=== PATIENT | female | born 1930 | race African-American/Black ===

== ENCOUNTER 2017-06-28 15:19 | Inpatient (IN) | payer MEDICARE ==
[2017-06-28 17:37] VITALS: BMI 24.5
--- NOTE | 2017-06-28 19:06 | RAD ---
CHEST ONE VIEW: History: Dyspnea. Comparison: 06-22-17 FINDINGS: Cardiac silhouette is magnified by projection. Pulmonary vasculature is upper limits of normal. Patch y bilateral perihilar and bibasilar infiltrates are now apparent. Mediastinum is midline with aortic calcification and a dual-lead left subclavian cardiac electronic device. quality assurance monitor body leads overli e the chest. IMPRESSION: 1. Mild pulmonary vascular congestion. 2. Atherosclerosis. POS: [facility]
[2017-06-28 19:24] LABS: #Basophils 0.1 thou/uL (0.0-0.2); #Eosinphils 0.1 thou/uL (0.0-0.7); #Lymphocytes 1.2 thou/uL (1.20-3.40); #Monocytes 0.9 thou/uL (0.11-0.59); #Neutrophils 4.4 thou/uL (1.40-6.50); %Basophils 0.9 % (0.0-1.0); %Lymphocytes 17.9 % (21.0-51.0); %Monocytes 12.7 % (0.0-10.0); %Neutrophils 66.5 % (42.0-75.0); Hemoglobin 13.1 g/dL (12.0-16.0); Mean Corpuscular HGB CONC 31.3 g/dL (32.0-36.0); Mean Corpuscular Hemoglobin 30.6 pg (27.0-31.0); Mean Corpuscular Volume 97.8 fl (81.0-99.0); Mean Platelet Volume 7.3 fL (7.4-10.4); Platelet Count 214 thou/uL (130-400); RBC Distribution Width 12.5 % (11.5-14.5); Red Blood Cell (RBC) Count 4.29 mill/uL (4.20-5.40); White Blood Cell (WBC) Count 6.7 thou/uL (4.8-10.8)
[2017-06-28 19:44] LABS: ALT (SGPT) 27 U/L (8-55); AST (SGOT) 41 U/L (5-34); Albumin 3.1 g/dL (3.4-4.8); Alkaline Phosphatase 111 U/L (40-150); Anion Gap 10 mmol/L (10-20); BUN (Urea Nitrogen) 15 mg/dL (9.8-20.1); Bilirubin, Total 0.3 mg/dL (0.2-1.2); Calc. Creatinine Clearance 18 mL/min (70-130); Calcium 9.6 mg/dL (7.8-10.44); Carbon Dioxide 28 mmol/L (23-31); Chloride 102 mmol/L (98-107); Estimated GFR-MDRD 26; Globulin 3.1 g/dL (2.4-3.5); Glucose 110 mg/dL (83-110); Magnesium 2.2 mg/dL (1.6-2.6); Potassium 3.3 mmol/L (3.5-5.1); Protein, Total 6.2 g/dL (6.0-8.3); Sodium 137 mmol/L (136-145)
[2017-06-28 19:50] LABS: Troponin I 0.023 ng/mL (< 0.028)
--- NOTE | 2017-06-28 19:58 | PDOC.PN ---
- Subjective Encounter Start Date: 06/28/17 Encounter Start Time: 19:58 Patient seen and examined. - Objective MAR Reviewed: Yes Vital Signs & Weight: Vital Signs (12 hours) Temp Pulse Resp BP Pulse Ox 06/28/17 19:42 98.0 F 109 H 20 161/81 H 95 06/28/17 17:10 98.0 F 93 18 95 06/28/17 17:05 98.0 F 93 18 114/73 Weight Weight 134 lb 1 oz I&O: 06/27/17 06/28/17 06/29/17 06:59 06:59 06:59 Output Total 550 Balance -550 Result Diagrams: 06/28/17 19:13 06/28/17 19:13 Radiology Reviewed by me: Yes (CXR - mild pulm vas congestio) EKG Reviewed by me: Yes (Tele paced) Phys Exam - Physical Examination Constitutional: NAD HEENT: PERRLA, moist MMs Neck: no nodes, no JVD Respiratory: no wheezing, no rhonchi, clear to auscultation bilateral Scat rales at bases Cardiovascular: RRR, no rub no heaves/pulsations Gastrointestinal: soft, non-tender, no distention, positive bowel sounds Musculoskeletal: no edema, pulses present Neurological: non-focal, normal sensation, moves all 4 limbs Psychiatric: normal affect, A&O x 3 Skin: no rash Review of Systems - Review of Systems Constitutional: negative: fever, chills, sweats, weakness, malaise, other Eyes: negative: Pain, Vision Change, Conjunctivae Inflammation, Eyelid Inflammation, Redness, Other ENT: negative: Ear Pain, Ear Discharge, Nose Pain, Nose Discharge, Nose Congestion, Mouth Pain, Mouth Swelling, Throat Pain, Throat Swelling, Other Respiratory: negative: Cough, Dry, Shortness of Breath, Hemoptysis, SOB with Excertion, Pleuritic Pain, Sputum, Wheezing Cardiovascular: negative: chest pain, palpitations, orthopnea, paroxysmal nocturnal dyspnea, edema, light headedness, other Gastrointestinal: negative: Nausea, Vomiting, Abdominal Pain, Diarrhea, Constipation, Melena, Hematochezia, Other Genitourinary: negative: Dysuria, Frequency, Incontinence, Hematuria, Retention , Other Musculoskeletal: negative: Neck Pain, Shoulder Pain, Arm Pain, Back Pain, Hand Pain, Leg Pain, Foot Pain, Other Skin: negative: Rash, Lesions, Rm, Bruising, Other Neurological: negative: Weakness, Numbness, Incoordination, Change in Speech, Confusion, Seizures, Other - Medications/Allergies Allergies/Adverse Reactions: Allergies Allergy/AdvReac Type Severity Reaction Status Date / Time No Known Allergies Allergy Verified 06/28/17 17:26 Medications: Current Medications Albuterol/Ipratropium (Duoneb) 3 ml NEB [id number] PRN PRN Reason: SOB &/or Wheezing
[2017-06-28] MEDS ORDERED: Bisacodyl 10 MG SUPP PR PRN (20:01)
[2017-06-28] MEDS ORDERED: Acetaminophen 325 MG TAB PO PRN (20:01)
[2017-06-28] MEDS ORDERED: Ondansetron ODT 4 MG TAB PO PRN (20:01)
[2017-06-28] MEDS ORDERED: Nitroglycerin 0.4 MG TAB (25 Tab Bottle) PO PRN (20:01)
[2017-06-28] MEDS ORDERED: Ondansetron HCl/PF 4 MG/2 ML Vial IVP PRN (20:01)
[2017-06-28] MEDS ORDERED: Senokot 8.6 MG TAB PO PRN (20:01)
[2017-06-28] MEDS ORDERED: Calcium Carbonate 500 MG ChewTAB PO PRN (20:01)
[2017-06-28] MEDS: Rosuvastatin 20 MG TAB PO SCH (21:17)
[2017-06-28] MEDS: Heparin 5,000 UNITS/ML VIAL SC SCH (21:18)
[2017-06-28] MEDS: Docusate 100 MG CAP PO SCH (21:18)
[2017-06-28] MEDS: Sodium Chloride 0.9% 1,000 ML IV SCH (21:20)
--- NOTE | 2017-06-28 22:11 | HP ---
DATE OF ADMISSION: 06/28/2017 PRIMARY CARE PHYSICIAN: Vanessa Romo D.O. CHIEF COMPLAINT: Abnormal labs. CODE STATUS: FULL CODE. SURROGATE DECISION MAKER: Patient makes her own physician with the help of her family. HISTORY OF PRESENT ILLNESS: Patient is an 87-year-old female with a recent influenzae A COPD, chroni c diastolic heart failure, hypertension, and hyperlipidemia who presented as a direct admit from [facility] with abnormal labs. She was found to have elevated creatinine as well as blood pressure of 88/ 59 this morning at the nursing facility. She also felt generally weak. Her potassium this morning w as 2.7. The patient had recent influenza and has completed Tamiflu. Due to recent worsening creatin ine, NICKO inhibitor, Aldactone and Lasix were held. She denies any chest pain, palpitations, lighthea dedness, or dizziness. She was admitted last month and was evaluated by Cardiology. Echocardiogram last month showed left ventricular ejection fraction of 50%-55% with diastolic dysfunction, mild to m oderate concentric left ventricular hypertrophy. She also has a history of mild coronary artery dise ase. PAST MEDICAL HISTORY: 1. Mild coronary artery disease. 2. Nonischemic cardiomyopathy. 3. Hypertension. 4. Chronic obstructive pulmonary disease. 5. Hyperlipidemia. 6. Recent influenza. 7. History of thyroid mass. 8. Carotid stenosis. 9. Former smoker. 10. Chronic respiratory failure, on home oxygen. PAST SURGICAL HISTORY: 1. AICD placement. 2. Hernia repair. 3. Cardiac catheterization. ALLERGIES: Patient is allergic to TESSALON PERLES. CURRENT HOME MEDICATIONS: Albuterol nebulizer as needed, aspirin 325 mg daily, Pulmicort nebulizer b .i.d., Perforomist 20 mcg b.i.d., loratadine 10 mg daily, multivitamin daily, Ranexa 500 mg b.i.d., C restor 40 mg at bedtime, Lasix, lisinopril, and Aldactone are currently on hold. SOCIAL HISTORY: Patient is a former smoker. Currently, he resides at the [facility] bed. No current use of smoking, alcohol, or drug use. FAMILY HISTORY: Negative for premature coronary artery disease. Father from dementia. REVIEW OF SYSTEMS: Please refer to my progress note. PHYSICAL EXAMINATION: VITAL SIGNS: Per today's progress note. GENERAL: An 87-year-old female in no apparent distress. Feels generally weak. HEENT: Head: Atraumatic, normocephalic. Sclerae are anicteric. Moist mucous membranes. No oral l esion. NECK: Supple, no JVD, no carotid bruit. LUNGS: Showed scattered rales at bases. No wheezing or rhonchi. Lungs were symmetrical. No signif icant use of accessory muscles. HEART: S1, S2 present, 2/6 systolic murmur over the mitral area. No heaves or pulsation. ABDOMEN: Soft, nontender, bowel sounds present. EXTREMITIES: No edema or calf tenderness. NEUROLOGIC: Grossly nonfocal, moves all four extremities. PSYCHIATRY: Alert, awake, oriented x3. SKIN: Warm and dry. LYMPH NODES: No palpable lymph nodes in the neck. PERIPHERAL VASCULAR: Radial pulses palpable bilaterally. MUSCULOSKELETAL: No joint swelling or tenderness. SKIN: Warm and dry. LYMPH NODES: No palpable lymph nodes in the neck. LABORATORY FINDINGS AND RADIOLOGY FINDINGS: Per my progress note. IMPRESSION: 1. Acute kidney injury, multifactorial. 2. Chronic diastolic heart failure, compensated. 3. Hypokalemia. The patient received 40 mEq of potassium chloride at the nursing facility. 4. Hyperlipidemia. 5. Mild coronary artery disease. 6. Chronic obstructive pulmonary disease. 7. Chronic respiratory failure, on home oxygen. 8. Recent influenza. 9. Hyperlipidemia. 10. History of thyroid mass. PLAN: The patient will be monitored in the telemetry unit. We will get renal ultrasound. Gentle in travenous hydration. Hold Lasix, Aldactone, and lisinopril. Check urinalysis. Avoid nephrotoxic ag ents. Continue other home medications. P.r.n. nebulizer treatment. DVT prophylaxis with heparin. We will consult Nephrology in a.m. Adjust medications based on renal function. Plan of care was discussed with the patient in detail. She stated understanding.
[2017-06-28 23:47] LABS: Bilirubin Negative (Negative); Blood, Urine Small (Negative); Clarity CLEAR (Clear); Glucose, Urine (Dipstick) Negative (Negative); Leukocyte Negative (Negative); Nitrite Negative (Negative); Protein, Urine (Dipstick) 300 mg/dL (Neg-Trace); Specific Gravity, Urine 1.014 (1.002-1.036); Urobilinogen 0.2 mg/dL (0.2-1.0)
[2017-06-28 23:53] LABS: Bacteria/HPF None Seen HPF (None Seen); Hyaline Casts/LPF 7-10 HYALINE CAST LPF (0-3 Hyaline); Pathc Cast-AUWi Flag 1.89 (0-2.49); Squamous Epithelial 0-3 HPF (0-3)
[2017-06-29] MEDS: Arformoterol 15 MCG/2 ML NEB NEB SCH ×2 (07:04→18:44)
[2017-06-29] MEDS: Budesonide 0.25 MG/2 ML NEB NEB SCH ×2 (07:08→18:49)
[2017-06-29] MEDS ORDERED: Potassium Chloride 20 MEQ TAB PO SCH ×2 (08:00→09:00)
--- NOTE | 2017-06-29 09:10 | ULT ---
BILATERAL RENAL ULTRASOUND: HISTORY: Acute renal insufficiency. FINDINGS: The right kidney measures 10.1 cm in length and the left kidney measures 9.8 cm in length. No hydron ephrosis is seen on either side. There is a 1.3 cm cyst in the right mid kidney and a 1 cm cyst in t he left mid kidney. The urinary bladder is well distended with a volume of 187 cc. There is suggest ion of a 5 mm calculus in the inferior pole of the right kidney. IMPRESSION: 1. Bilateral renal cysts. 2. Probable nonobstructing 5 mm right renal calculus. POS: OFF
--- NOTE | 2017-06-29 09:28 | CON ---
DATE OF CONSULTATION: 06/29/2017 CONSULTING PHYSICIAN: Ene Loera M.D. REQUESTING PHYSICIAN: Dr. Velazquez REASON FOR CONSULTATION: Acute on chronic kidney disease and hypokalemia. IMPRESSION: 1. Acute on chronic kidney disease. This is likely in the context of hemodynamically and cytokine-m ediated injury as patient recently suffered influenza with urinary tract infection and also noted to be hemodynamically unstable with systolic blood pressure in the 80s. 2. Hypokalemia. PLAN: 1. Gentle IV fluid rehydration. 2. Replete potassium. 3. Renally dose all medications and avoid potentially nephrotoxic agents. 4. Further management will be dependent on the clinical course. I do expect significant improvement in the renal function once hemodynamics have stabilized. Meanwhile for now we will hold the angiote nsin converting enzyme inhibitors, diuretics until such point that hemodynamics stabilizes. HISTORY OF PRESENT ILLNESS: History is that of an 87-year-old female patient who has been at an [facility] facility where she was being treated for urinary tract infection and influenza. The patient note d to be hemodynamically stable with a systolic blood pressure in the 80s and clinical evaluation did reveal elevated creatinine above the patient's baseline creatinine as well as severe hypokalemia. As a result of this, the decision was taken to transfer this patient to us here. Of note, according to records, the patient does have an ejection fraction of about 50-55%. Review of the patient's medica tions revealed an angiotensin converting enzyme inhibitor, diuretics including loop diuretic and spir onolactone. All these medications have been placed on hold at this point. As a result of the conste llation of these findings, the decision has been taken to involve Renal in the management of this orin e. The patient does alude to the history of dizziness, some weakness, but no nausea, no vomiting, no diarrhea. According to the family, the patient probably has not been eating much. Given the nature of the food being stopped over there. PAST MEDICAL HISTORY: Coronary artery disease, nonischemic, cardiomyopathy, hypertension, chronic ob structive pulmonary disease, dyslipidemia, history of thyroid mass, carotid stenosis. Remote tobacco usage. MEDICATIONS: Reviewed and as documented on Dip[facility]. ALLERGIES: TESSALON PERLES. SOCIAL HISTORY: Remote tobacco use. No alcohol, no tobacco, no illicit drug use at this point. FAMILY HISTORY: None significantly related to the presenting illness. REVIEW OF SYSTEMS: As documented in the body of the history. All the other systems were reviewed an d were found not to be significantly related to the presenting illness. PHYSICAL EXAMINATION: GENERAL: The patient was found not to be in any obvious respiratory or physical distress, now hemody namically much more stable. Afebrile. HEENT: Remarkable for some degree of dry oral mucosa, otherwise neck was supple. No conjunctival in jection or icterus. CARDIOVASCULAR SYSTEM: First and second heart sounds. RESPIRATORY SYSTEM: Clear to auscultation bilaterally. DIGESTIVE SYSTEM: Revealed a benign abdomen with positive bowel sounds. EXTREMITIES: No peripheral edema. SKIN: No new gross rash. LYMPHATICS: No peripheral lymphadenopathy. SUMMARY: An 87-year-old female patient who presented here with elevated creatinine above her baselin e creatinine as well as severe hypokalemia. Thank you for this consultation. We will follow with you.
[2017-06-29] MEDS: Heparin 5,000 UNITS/ML VIAL SC SCH ×2 (10:10→20:24)
[2017-06-29] MEDS: Multivit, Therapeutic 1 TAB PO SCH (10:10)
[2017-06-29] MEDS: Docusate 100 MG CAP PO SCH ×2 (10:10→20:23)
[2017-06-29] MEDS: Aspirin 325 MG TAB PO SCH (10:11)
[2017-06-29] MEDS: Loratadine 10 MG TAB PO SCH (10:20)
--- NOTE | 2017-06-29 10:20 | PDOC.PN ---
- Subjective Encounter Start Date: 06/29/17 Encounter Start Time: 10:18 Patient seen and examined. No new complaints. No overnight events - Objective Resuscitation Status: Resuscitation Status FULL:Full Resuscitation MAR Reviewed: Yes Vital Signs & Weight: Vital Signs (12 hours) Temp Pulse Resp BP Pulse Ox 06/29/17 07:08 96 16 98 06/29/17 07:04 96 16 98 06/29/17 04:00 97.4 F L 100 20 107/67 97 06/29/17 01:57 101 H 18 96 06/29/17 00:00 98.6 F 93 18 114/66 98 Weight Weight 133 lb I&O: 06/28/17 06/29/17 06/30/17 06:59 06:59 06:59 Intake Total 950 Output Total 1400 Balance -450 Result Diagrams: 06/28/17 19:13 06/28/17 19:13 Radiology Reviewed by me: No (Renal USG - No obstruction) EKG Reviewed by me: Yes (Tele SR) Phys Exam - Physical Examination Constitutional: NAD Respiratory: no wheezing, no rales, no rhonchi, clear to auscultation bilateral Cardiovascular: RRR, no rub no heaves/pulsation Gastrointestinal: soft, non-tender, no distention, positive bowel sounds Musculoskeletal: no edema Neurological: non-focal, moves all 4 limbs Psychiatric: A&O x 3 Dx/Plan - Plan DVT proph w/heparin, DVT proph w/SCDs IMPRESSION: 1. Acute kidney injury, multifactorial. 2. Chronic diastolic heart failure, compensated. 3. Hypokalemia. 4. Hyperlipidemia. 5. Mild coronary artery disease. 6. Chronic obstructive pulmonary disease. 7. Chronic respiratory failure, on home oxygen. 8. Recent influenza. 9. Hyperlipidemia. 10. History of thyroid mass. 11. Renal calculi PLAN: * Change IVF to 50 ml/hr * Nephro following * Diuretics/ACEI/Aldactone on hold * AM lab * Repeat labs at 1300 * Orthostatics in AM * Cont current meds as below * PT/OT Review of Systems - Review of Systems Respiratory: negative: Cough, Dry, Shortness of Breath, Hemoptysis, SOB with Excertion, Pleuritic Pain, Sputum, Wheezing Cardiovascular: negative: chest pain, palpitations, orthopnea, paroxysmal nocturnal dyspnea, edema, light headedness - Medications/Allergies Allergies/Adverse Reactions: Allergies Allergy/AdvReac Type Severity Reaction Status Date / Time No Known Allergies Allergy Verified 06/28/17 17:26 Medications: Current Medications Acetaminophen (Tylenol) 650 mg PO Q4H PRN PRN Reason: Headache/Fever or Pain Albuterol/Ipratropium (Duoneb) 3 ml NEB [id number] PRN PRN Reason: SOB &/or Wheezing Last Admin: 06/29/17 07:08 Dose: 3 ml Arformoterol Tartrate (Brovana) 15 mcg NEB BID-RT [facility] Last Admin: 06/29/17 07:04 Dose: 15 mcg Aspirin (Aspirin) 325 mg PO DAILY [facility] Bisacodyl (Dulcolax) 10 mg [place] Q24H PRN PRN Reason: Constipation Budesonide (Pulmicort Neb Solution) 0.25 mg NEB BID-RT [facility] Last Admin: 06/29/17 07:08 Dose: 0.25 mg Calcium Carbonate (Tums) 1,000 mg PO Q4H PRN PRN Reason: Heartburn or Indigestion Docusate Sodium (Colace) 100 mg PO BID [facility] Last Admin: 06/28/17 21:18 Dose: 100 mg Heparin Sodium (Porcine) (Heparin) 5,000 units SC BID [facility] Last Admin: 06/28/17 21:18 Dose: 5,000 units Sodium Chloride (Normal Saline 0.9%) 1,000 mls @ 50 mls/hr IV .Q20H [facility] Loratadine (Claritin) 10 mg PO DAILY [facility] Multivitamins (Theragran) 1 tab PO DAILY [facility] Nitroglycerin (Nitrostat) 0.4 mg PO Q5MIN PRN PRN Reason: Chest Pain Ondansetron HCl (Zofran Odt) 4 mg PO Q6H PRN PRN Reason: Nausea/Vomiting Ondansetron HCl (Zofran) 4 mg IVP Q6H PRN PRN Reason: Nausea/Vomiting Ranolazine (Ranexa) 500 mg PO 0800,1800 [facility] Rosuvastatin Calcium (Crestor) 40 mg PO HS [facility] Last Admin: 06/28/17 21:17 Dose: 40 mg Senna (Senokot) 2 tab PO HSPRN PRN PRN Reason: Constipation Sodium Chloride (Flush - Normal Saline) 10 ml IVF Q12HR [facility] Last Admin: 06/28/17 22:50 Dose: Not Given Sodium Chloride (Flush - Normal Saline) 10 ml IVF PRN PRN PRN Reason: Saline Flush
[2017-06-29] MEDS: Sodium Chloride 0.9% 1,000 ML IV SCH ×2 (10:34→12:38)
[2017-06-29 13:31] LABS: Anion Gap 11 mmol/L (10-20); BUN (Urea Nitrogen) 13 mg/dL (9.8-20.1); Calc. Creatinine Clearance 21 mL/min (70-130); Calcium 8.9 mg/dL (7.8-10.44); Carbon Dioxide 23 mmol/L (23-31); Chloride 106 mmol/L (98-107); Estimated GFR-MDRD 32; Glucose 112 mg/dL (83-110); Potassium 3.6 mmol/L (3.5-5.1); Sodium 136 mmol/L (136-145)
[2017-06-29] MEDS: Rosuvastatin 20 MG TAB PO SCH (20:23)
[2017-06-30 05:37] LABS: Anion Gap 7 mmol/L (10-20); BUN (Urea Nitrogen) 13 mg/dL (9.8-20.1); Calc. Creatinine Clearance 26 mL/min (70-130); Calcium 8.6 mg/dL (7.8-10.44); Carbon Dioxide 29 mmol/L (23-31); Chloride 106 mmol/L (98-107); Estimated GFR-MDRD 39; Glucose 93 mg/dL (83-110); Sodium 139 mmol/L (136-145)
[2017-06-30] MEDS: Sodium Chloride 0.9% 1,000 ML IV SCH (05:52)
[2017-06-30] MEDS: Arformoterol 15 MCG/2 ML NEB NEB SCH ×2 (08:09→18:52)
[2017-06-30] MEDS: Budesonide 0.25 MG/2 ML NEB NEB SCH ×2 (08:11→18:52)
[2017-06-30] MEDS: Heparin 5,000 UNITS/ML VIAL SC SCH ×2 (09:28→20:31)
[2017-06-30] MEDS: Loratadine 10 MG TAB PO SCH (09:29)
[2017-06-30] MEDS: Multivit, Therapeutic 1 TAB PO SCH (09:29)
[2017-06-30] MEDS: Docusate 100 MG CAP PO SCH ×2 (09:29→20:32)
[2017-06-30] MEDS: Aspirin 325 MG TAB PO SCH (09:29)
--- NOTE | 2017-06-30 18:56 | PRG ---
DATE OF SERVICE: 06/30/2017 SUBJECTIVE: Patient was seen and examined, seems to be doing so much better noted with the following vital signs. OBJECTIVE: VITAL SIGNS: Afebrile with temperature 98.6, pulse 97, respiratory rate 18, O2 sat 96% with blood pr essure 146/88, O2 sat 100%. HEENT: Unremarkable with moist oral mucosa. NECK: Supple, no conjunctival injection or icterus. CARDIOVASCULAR SYSTEM: First and second heart sounds were heard. RESPIRATORY SYSTEM: Clear to auscultation. DIGESTIVE SYSTEM: Revealed a benign abdomen with positive bowel sounds. EXTREMITIES: No peripheral edema. SKIN: No new gross rash. LYMPHATICS: No peripheral lymphadenopathy. LABORATORY INVESTIGATION: Showed a potassium of 3.0, creatinine down to 1.54. IMPRESSION: 1. Acute on chronic kidney disease, which seems to be improving. 2. Hypokalemia. PLAN: 1. Replete the potassium. 2. Discontinue IV fluid. 3. From the renal standpoint, patient is good for discharge. Please, for now, hold the patient's AC E inhibitor and diuretics. We will plan on having patient follow up with Nephrology in 2 weeks and w ith a repeat chemistry. 4. Further management to be dependent on the clinical course.
[2017-06-30] MEDS: Rosuvastatin 20 MG TAB PO SCH (20:39)
--- NOTE | 2017-06-30 22:13 | PDOC.PN ---
- Subjective Encounter Start Date: 06/30/17 Encounter Start Time: 17:00 Patient seen and examined. No new complaints. No overnight events - Objective Resuscitation Status: Resuscitation Status FULL:Full Resuscitation MAR Reviewed: Yes Vital Signs & Weight: Vital Signs (12 hours) Temp Pulse Pulse Pulse Resp BP BP 06/30/17 20:00 98.0 F 94 18 06/30/17 18:52 101 H 20 06/30/17 16:00 98.4 F 80 18 06/30/17 12:00 98.6 F 97 18 06/30/17 11:02 108 H 97 146/88 H 135/73 BP Pulse Ox Pulse Ox Pulse Ox 06/30/17 20:00 129/71 96 06/30/17 18:52 98 06/30/17 16:00 140/78 96 06/30/17 12:00 135/73 96 06/30/17 11:02 100 100 Weight Weight 137 lb 1.6 oz I&O: 06/29/17 06/30/17 07/01/17 06:59 06:59 06:59 Intake Total 950 2735 1580 Output Total 1400 1575 1450 Balance -450 1160 130 Result Diagrams: 06/28/17 19:13 06/30/17 05:06 EKG Reviewed by me: Yes (Tele SR) Phys Exam - Physical Examination Constitutional: NAD Respiratory: no wheezing, no rhonchi Cardiovascular: RRR, no rub Gastrointestinal: soft, non-tender, positive bowel sounds Musculoskeletal: no edema Neurological: moves all 4 limbs Dx/Plan - Plan plan discussed w/ family, DVT proph w/heparin, DVT proph w/SCDs IMPRESSION: 1. Acute kidney injury, improving 2. Chronic diastolic heart failure, compensated. 3. Hypokalemia. 4. Hyperlipidemia. 5. Mild coronary artery disease. 6. Chronic obstructive pulmonary disease. 7. Chronic respiratory failure, on home oxygen. 8. Recent influenza A and B with UTI 9. Hyperlipidemia. 10. History of thyroid mass. 11. Renal calculi PLAN: * DC IVF * Replace Potassium * Nephro following * Diuretics/ACEI/Aldactone on hold * AM lab * Cont current meds as below * PT/OT * DC to SNF in AM if stable Review of Systems - Review of Systems Respiratory: negative: Cough, Dry, Shortness of Breath, Hemoptysis, SOB with Excertion, Pleuritic Pain, Sputum, Wheezing Cardiovascular: negative: chest pain, palpitations, orthopnea, paroxysmal nocturnal dyspnea, edema, light headedness - Medications/Allergies Allergies/Adverse Reactions: Allergies Allergy/AdvReac Type Severity Reaction Status Date / Time No Known Allergies Allergy Verified 06/28/17 17:26 Medications: Current Medications Acetaminophen (Tylenol) 650 mg PO Q4H PRN PRN Reason: Headache/Fever or Pain Albuterol/Ipratropium (Duoneb) 3 ml NEB [id number] PRN PRN Reason: SOB &/or Wheezing Last Admin: 06/30/17 02:37 Dose: 3 ml Arformoterol Tartrate (Brovana) 15 mcg NEB BID-RT [facility] Last Admin: 06/30/17 18:52 Dose: 15 mcg Aspirin (Aspirin) 325 mg PO DAILY [facility] Last Admin: 06/30/17 09:29 Dose: 325 mg Bisacodyl (Dulcolax) 10 mg [place] Q24H PRN PRN Reason: Constipation Budesonide (Pulmicort Neb Solution) 0.25 mg NEB BID-RT [facility] Last Admin: 06/30/17 18:52 Dose: 0.25 mg Calcium Carbonate (Tums) 1,000 mg PO Q4H PRN PRN Reason: Heartburn or Indigestion Docusate Sodium (Colace) 100 mg PO BID [facility] Last Admin: 06/30/17 20:32 Dose: 100 mg Loratadine (Claritin) 10 mg PO DAILY [facility] Last Admin: 06/30/17 09:29 Dose: 10 mg Multivitamins (Theragran) 1 tab PO DAILY [facility] Last Admin: 06/30/17 09:29 Dose: 1 tab Nitroglycerin (Nitrostat) 0.4 mg PO Q5MIN PRN PRN Reason: Chest Pain Ondansetron HCl (Zofran Odt) 4 mg PO Q6H PRN PRN Reason: Nausea/Vomiting Ondansetron HCl (Zofran) 4 mg IVP Q6H PRN PRN Reason: Nausea/Vomiting Ranolazine (Ranexa) 500 mg PO 0800,1800 [facility] Last Admin: 06/30/17 16:54 Dose: 500 mg Rosuvastatin Calcium (Crestor) 40 mg PO HS [facility] Last Admin: 06/30/17 20:39 Dose: 40 mg Senna (Senokot) 2 tab PO HSPRN PRN PRN Reason: Constipation Sodium Chloride (Flush - Normal Saline) 10 ml IVF Q12HR [facility] Last Admin: 06/30/17 20:41 Dose: 10 ml Sodium Chloride (Flush - Normal Saline) 10 ml IVF PRN PRN PRN Reason: Saline Flush
[2017-07-01 06:14] LABS: Anion Gap 8 mmol/L (10-20); BUN (Urea Nitrogen) 11 mg/dL (9.8-20.1); Calc. Creatinine Clearance 28 mL/min (70-130); Calcium 8.6 mg/dL (7.8-10.44); Carbon Dioxide 32 mmol/L (23-31); Chloride 104 mmol/L (98-107); Estimated GFR-MDRD 44; Glucose 86 mg/dL (83-110); Sodium 141 mmol/L (136-145)
[2017-07-01 06:34] LABS: Potassium 2.9 mmol/L (3.5-5.1)
[2017-07-01] MEDS: Budesonide 0.25 MG/2 ML NEB NEB SCH (06:54)
[2017-07-01] MEDS: Arformoterol 15 MCG/2 ML NEB NEB SCH (06:57)
[2017-07-01] MEDS ORDERED: Potassium Chloride 20 MEQ TAB PO SCH ×2 (07:00→08:00)
[2017-07-01 08:01] VITALS: TEMP 98.6
[2017-07-01] MEDS: Loratadine 10 MG TAB PO SCH (09:42)
[2017-07-01] MEDS: Docusate 100 MG CAP PO SCH (09:42)
[2017-07-01] MEDS: Multivit, Therapeutic 1 TAB PO SCH (09:42)
[2017-07-01] MEDS: Aspirin 325 MG TAB PO SCH (09:42)
--- NOTE | 2017-07-01 13:39 | DIS ---
DISCHARGE DISPOSITION: group home facility. ALLERGIES: No known drug allergies. The patient was seen and examined on the day of discharge. Denies any new complaints. No chest pain, shortness of breath, or palpitations. DISCHARGE MEDICATIONS: Albuterol nebulizer as needed, aspirin 325 mg daily, Pulmicort 0.25 mg b.i.d., Colace 100 mg b.i.d. Perforomist 20 mcg b.i.d., Lasix 20 mg daily as needed for edema, loratadine 10 mg daily, multivitamin 1 tablet daily, potassium chloride 40 mEq twice a day for next 2 days. Primary care physician advised to follow up on potassium levels. Ranexa 500 mg b.i.d. Crestor 40 mg at bedtime. INPATIENT CONSULTANTS: Nephrology, Dr. Luque. DIAGNOSTIC TESTS: Renal ultrasound on 06/29/2017 showed bilateral renal cysts with probable nonobstructing 5 mm right renal calculus. BRIEF HOSPITAL COURSE: The patient is an 87-year-old female with recent Influenza A and B, COPD, chronic diastolic heart failure, hypertension, and hyperlipidemia, who presented as a direct admit from [facility] with abnormal labs. She also was found to have low blood pressure in systolic 80s. Please refer to the history and physical dated 06/28/2017 for further details. The patient was admitted to the hospital with a diagnosis of acute kidney injury with hypokalemia. Lasix, Aldactone, and lisinopril were held. The patient was seen by Nephrology, Dr. Luque. She received gentle IV hydration. Yesterday, IV fluids were discontinued. Creatinine today is 1.38 from 2.19 on admission. Potassium today was 2.9. The patient received total of 40 mEq of potassium chloride today. She will receive 40 mEq twice a day for the next 2 days. Primary care physician advised to follow up on the potassium levels. She will benefit from daily basic metabolic until the potassium level normalizes. She will follow up with Dr. Luque next week. Dr. Luque advised the patient to hold NICKO inhibitor and Aldactone for now. NICKO inhibitor can probably be started after 1 week once renal function has normalized. Low dose Amlodipine can be considered if needed. Plan of care was discussed with the patient in detail. She stated understanding. The patient is being discharged to nursing home facility to resume rehabilitation. FINAL DIAGNOSES: 1. Acute kidney injury, improving. 2. Chronic diastolic heart failure. 3. Hypokalemia. We will continue potassium supplementation with daily labs. 4. Hyperlipidemia. 5. Mild coronary artery disease. 6. Chronic obstructive pulmonary disease. 7. Chronic respiratory failure, on home oxygen. 8. Recent influenza A and B. 9. Hyperlipidemia. 10. History of thyroid mass. 11. Probable renal calculi based on renal ultrasound. MTDD
[2017-07-01 15:33] LABS: Potassium 3.5 mmol/L (3.5-5.1)
[2017-07-01 20:33] VITALS: BP 133/92
== END 2017-07-01 16:00 | disposition swing bed (61) | DRG 683 ==
LOC: 2NO 17:05
PROVIDERS: ADMIT Internal Medicine; ATTEND Internal Medicine
DX: N17.9 Acute kidney failure, unspecified (principal); I50.32 Chronic diastolic (congestive) heart failure; J96.10 Chronic respiratory failure, unspecified whether with hypoxia or hypercapnia; I42.9 Cardiomyopathy, unspecified; I13.0 Hypertensive heart and chronic kidney disease with heart failure and stage 1 through stage 4 chronic kidney disease, or unspecified chronic kidney disease; Z99.81 Dependence on supplemental oxygen; J44.9 Chronic obstructive pulmonary disease, unspecified; E87.6 Hypokalemia; E78.5 Hyperlipidemia, unspecified; I25.10 Atherosclerotic heart disease of native coronary artery without angina pectoris; N20.0 Calculus of kidney; Z87.440 Personal history of urinary (tract) infections; Z87.09 Personal history of other diseases of the respiratory system; Z87.891 Personal history of nicotine dependence; N18.9 Chronic kidney disease, unspecified
CPT/HCPCS: 36415; 71045; 76770; 80048; 81001; 83735; 83880; 84484; 85025; 94640; 94760; A4216; G8978-GP-CK; G8979-GP-CI; G8987-GO-CK; G8988-GO-CI; J1644; J7620; J7626

== ENCOUNTER 2017-08-19 12:37 | Outpatient (CLI) | payer MEDICARE ==
--- NOTE | 2017-08-19 14:23 | RAD ---
CHEST PA AND LATERAL: Date: 08/19/17 HISTORY: 87-year-old female with history of dyspnea. COMPARISON: 06/28/17. FINDINGS: Left ICD. Atherosclerosis of aorta with ectasia. Increased linear and interstitial markings. Overall appearance is minimally improved from the 06/22/17 study. IMPRESSION: Increased linear and interstitial markings bilaterally, slightly improved from the prior study. Impro ving pleural effusion changes. No new confluent process. Continue short-term follow-up. POS: [facility]
== END 2017-08-19 12:38 | disposition home or self-care (01) ==
LOC: RAD 12:37
PROVIDERS: ATTEND Internal Medicine
DX: R06.00 Dyspnea, unspecified (principal); R91.8 Other nonspecific abnormal finding of lung field
CPT/HCPCS: 71046

== ENCOUNTER 2017-09-22 08:17 | Outpatient (CLI) | payer MEDICARE ==
[2017-09-22 10:01] LABS: Actual Bicarbonate (HCO3a) 30.1 mEq/L (22-26); CO2 Tension 50.9 mmHg (35.0-45.0); O2 Tension (PaO2) 65.4 mmHg (80.0-100.0); pH, Arterial 7.39 (7.35-7.45)
[2017-09-22 10:02] LABS: Base Excess (BEa) 4.2 mEq/L (0 (+/-) 2.5); Hematocrit-ABG 40.4 % (36.0-47.0); Hemoglobin (Hb) 12.6 g/dL (12.0-16.0)
[2017-09-22 10:03] LABS: Analyzer IN Cardio OR; Calcium, Ionized 1.3 mmol/L (1.12-1.30)
[2017-09-22 10:04] LABS: ALV-art Gradient 20.705 (0-20); Puncture Site RR
== END 2017-09-22 08:18 | disposition home or self-care (01) ==
LOC: CP 08:17
PROVIDERS: ATTEND Internal Medicine
DX: J44.9 Chronic obstructive pulmonary disease, unspecified (principal); R06.09 Other forms of dyspnea
CPT/HCPCS: 82805

== ENCOUNTER 2018-10-07 12:21 | Outpatient (CLI) | payer MEDICARE ==
--- NOTE | 2018-10-07 13:00 | ULT ---
EXAM: Right lower extremity venous Doppler HISTORY: Right lower extremity edema/swelling for 2 weeks. FINDINGS: Grayscale, color-flow, Doppler evaluation, spectral analysis of the right lower extremity venous stru ctures is performed with 2-D imaging. The right common femoral, superficial femoral, popliteal, posterior tibial, proximal greater saphenous and profunda femoral veins are imaged. There is normal luminal compressibility, flow, and augmentation the visualized deep venous structures of the right lower extremity. IMPRESSION: No evidence of a deep vein thrombosis in the visualized deep venous structures right lower extremity.
== END 2018-10-07 12:22 | disposition home or self-care (01) ==
LOC: ULT 12:21
PROVIDERS: ATTEND Nurse Practitioner Family
DX: R79.89 Other specified abnormal findings of blood chemistry (principal); R60.0 Localized edema

== ENCOUNTER 2020-05-22 08:21 | Outpatient (CLI) | payer MEDICARE ==
--- NOTE | 2020-05-22 08:47 | RAD ---
Chest 2 views HISTORY: Dyspnea. COMPARISON: 01/15/2020. FINDINGS: Cardiac silhouette is within normal limits. Pulmonary vasculature are unremarkable. Mediastinum is midline with aortic calcification and a dual lead left subclavian cardiac electronic d evice. Lungs remain hyperinflated with flattening of each hemidiaphragm. Blunting of the left lateral costop hrenic angle is again demonstrated and likely related to pleural thickening. Calcification of the apical pleura stable. Compression of a midthoracic vertebral body with loss of height by greater than 50% was present on th e prior exam. IMPRESSION : Pulmonary hyperinflation and other chronic-type findings are stable.
== END 2020-05-22 08:22 | disposition home or self-care (01) ==
LOC: BICRAD 08:21
PROVIDERS: ATTEND Internal Medicine Critical Care Medicine
DX: R06.00 Dyspnea, unspecified (principal); R91.8 Other nonspecific abnormal finding of lung field; I70.0 Atherosclerosis of aorta
CPT/HCPCS: 71046